=== PATIENT | female | born 1980 | race Caucasian/White ===

== ENCOUNTER → 2021-11-01 07:44 | Outpatient (CLI) | payer BC, SELFPAY ==
--- NOTE | 2021-11-01 07:46 | DI.US.S_ITS ---
PROCEDURE: US PELVIC COMPLETE INDICATIONS: RLQ PAIN TECHNIQUE: Real-time scanning was performed of the pelvic organs, with image documentation. Additional endovaginal scanning was necessary due to incomplete visualization of the adnexal and endometrial structures by transabdominal scanning. COMPARISON: [facility], US, US ABDOMEN COMPLETE, 11/01/2021, 7:49. FINDINGS: Uterus: Uterus is anteverted and normal in size at 7.8 x 4.4 x 6.9 cm. The myometrium is heterogeneous and demonstrates a 1.9 cm intramural fibroid on the left posteriorly. The endometrium measures 10 mm combined thickness. The endometrial stripe demonstrates a heterogeneous appearance, yet without focal masses. No abnormal vascularity can be seen along the endometrial stripe. Ovaries: The right ovary measures 4.8 x 2 x 3.4 cm. The right ovary demonstrates 3 simple appearing cystic follicles, with the largest measuring up to 1.8 cm. The left ovary measures 10.6 x 8 x 10.1 cm. There is a nonvascular 4.7 cm complex cyst seen. There is also a 7.4 x 6.9 x 8.5 cm nonvascular complex, heterogeneous mass with an echogenic shadowing component. Other: No pathologic free abdominal or pelvic fluid. No appendix (either normal or abnormal) is identified on this study. IMPRESSION: High suspicion for left ovarian dermoid, with the left ovary measuring 10.6 cm, with a heterogeneous mass with hyperechoic shadowing within it measuring up to 8.5 cm. Gynecology referral is recommended. If clinically appropriate, a follow-up pelvic CT (with IV and oral contrast) or dedicated gynecological protocol MRI (without and with contrast) could be considered for further evaluation (assuming that there is no contraindication). We strive to produce accurate, complete, and clear reports of imaging services. To assist us in improving patient care, this report was composed using standard report templates and voice recognition software. Therefore, it may contain abnormal punctuation, insertions and/or omissions. Occasional wrong-word or sound-alike substitutions may occur. Though we review the report and make efforts to correct it, we do recommend that the report be read carefully in proper context to recognize any text inaccuracies. Dictated by: Jame Doyle M.D. on 11/01/2021 at 8:53 Approved by: Jame Doyle M.D. on 11/01/2021 at 8:58
--- NOTE | 2021-11-01 07:46 | DI.US.S_ITS ---
PROCEDURE: US ABDOMEN COMPLETE INDICATIONS: RLQ PAIN TECHNIQUE: Real-time scanning was performed of the abdominal and retroperitoneal organs, with image documentation. COMPARISON: None. FINDINGS: Liver: Normal hepatic parenchymal echogenicity, echotexture, and contour. No focal hepatic mass identified. Gallbladder: Normally distended without wall thickening, pericholecystic fluid, sludge, or gallstone. Biliary ducts: Normal caliber. Pancreas: Visualized portions of the pancreas are sonographically normal. Spleen: The spleen is normal in size. There is suggestion of a possible 1.5 centimeter slightly hyperechoic and hypervascular nodule in the central spleen near the hilum, although this is not entirely definitive. There appears to be a hypoechoic halo surrounding the nodule. Kidneys: Normal size and appearance. No shadowing calculus or hydronephrosis. Aorta: Visualized aorta is normal in caliber at less than 3 cm. Iliacs: Proximal common iliac arteries are normal in caliber at less than 2.5 cm. IVC: Intrahepatic inferior vena cava is patent. Miscellaneous: No free abdominal fluid. IMPRESSION: Possible splenic mass measuring 1.[address] abdomen and pelvis with IV contrast for further characterization. Otherwise normal study. Dictated by: Andrew Doshi M.D. on 11/01/2021 at 10:04 Approved by: Andrew Doshi M.D. on 11/01/2021 at 10:13
== END ==
PROVIDERS: PCP Internal Medicine; Referring Provider Internal Medicine; Visit Provider Internal Medicine
DX: R10.31 Right lower quadrant pain (principal); D25.1 Intramural leiomyoma of uterus; N83.292 Other ovarian cyst, left side
CPT/HCPCS: 76700; 76830; 76856

== ENCOUNTER → 2021-11-15 10:56 | Outpatient (CLI) | payer BC, SELFPAY ==
--- NOTE | 2021-11-15 | DI.CT.S_ITS ---
PROCEDURE: CT ABDOMEN PELVIS W CON INDICATIONS: Right lower quadrant pain TECHNIQUE: After the administration of intravenous contrast, 5 mm thick images acquired from the diaphragm to the symphysis pubis after a 10-minute delay. 2 mm thick coronal and sagittal reformats were then performed of the kidneys and ureters. For radiation dose reduction, the following was used: automated exposure control, adjustment of mA and/or kV according to patient size. COMPARISON: [facility], , US ABDOMEN COMPLETE, 11/01/2021, 7:49. [facility], US, US PELVIC COMPLETE, 11/01/2021, 8:12. FINDINGS: Image quality: Excellent. Lung bases: Lung bases are clear. Heart size is normal. A small hiatal hernia is incidentally noted. Urinary system: Both kidneys are normal in size and enhancement. Contrast-filled renal calyces are normal in morphology. Contrast filled portions of both ureters are normal in caliber. Bladder wall thickness is normal. Solid organs: Liver is normal in size and enhancement. Gallbladder wall is not thickened. Biliary system is non dilated. Pancreas enhances normally. In this patient with this given history, scrutiny is given to the spleen at the site of the apparent prior ultrasound abnormality. No CT correlate can be seen by the potential ultrasound abnormality. The spleen demonstrates normal size and demonstrates no focal lesions. No adrenal nodules. Peritoneum and bowel: Bowel loops demonstrate normal wall thickness and caliber. No free fluid or air. Nodes and vessels: No retroperitoneal or mesenteric adenopathy by size criteria. Aorta and inferior vena cava are normal in size. Abdominal wall: No ventral hernias. Pelvis: There is a complex mass of the left ovary that contains fat and mural nodules that measures 7.4 x 6.9 by 6.5 cm. The uterus is unremarkable. No pathologic free pelvic fluid. No inguinal hernias or adenopathy. Bones: No suspicious bony lesions. No vertebral body compression fractures. Focal L5-S1 degenerative change is seen. There is lower thoracic spine degenerative change also seen. IMPRESSION: Left ovarian dermoid until proven otherwise. Gynecology consultation is recommended. No splenic abnormality is seen by CT. Incidental note is made of: Small hiatal hernia Lower thoracic spine degenerative change Focal L5-S1 degenerative change Dictated by: Jame Doyle M.D. on 11/15/2021 at 13:12 Approved by: Jame Doyle M.D. on 11/15/2021 at 13:16
== END ==
PROVIDERS: PCP Internal Medicine; Referring Provider Internal Medicine; Visit Provider Internal Medicine
DX: R10.31 Right lower quadrant pain (principal); R16.1 Splenomegaly, not elsewhere classified; D27.1 Benign neoplasm of left ovary; K44.9 Diaphragmatic hernia without obstruction or gangrene; M47.814 Spondylosis without myelopathy or radiculopathy, thoracic region; M47.817 Spondylosis without myelopathy or radiculopathy, lumbosacral region
CPT/HCPCS: 74177; Q9967

== ENCOUNTER → 2021-11-18 14:23 | Outpatient (CLI) | payer BC, SELFPAY ==
[2021-11-18 15:35] LABS: Cancer Antigen 125 43.2 U/mL (0-35)
[2021-11-20 11:41] LABS: Human Epididymis Prot 4 41.3 pmol/L (0.0-63.6)
== END ==
PROVIDERS: PCP Internal Medicine; Referring Provider Obstetrics & Gynecology; Visit Provider Obstetrics & Gynecology
DX: R19.09 Other intra-abdominal and pelvic swelling, mass and lump (principal); N83.8 Other noninflammatory disorders of ovary, fallopian tube and broad ligament
CPT/HCPCS: 36415; 86304; 86305

== ENCOUNTER → 2021-11-21 15:37 | Outpatient (CLI) | payer BC, SELFPAY ==
--- NOTE | 2021-11-21 15:38 | DI.MG.S_ITS ---
BILATERAL DIGITAL SCREENING MAMMOGRAM 3D/2D WITH CAD: 11/21/2021 CLINICAL: Baseline exam. Routine screening. No prior exams were available for comparison. There are scattered fibroglandular elements in both breasts. Current study was also evaluated with a Computer Aided Detection (CAD) system. No significant masses, calcifications, or other findings are seen in either breast. IMPRESSION: NEGATIVE There is no mammographic evidence of malignancy. A 1 year screening mammogram is recommended. This exam was interpreted at Station ID: [id number]. NOTE: For mammograms, a report in lay terms will be sent to the patient. Approximately 15% of breast malignancies will not be visualized mammographically. In the management of a palpable breast mass, a negative mammogram must not discourage biopsy of a clinically suspicious lesion. Electronically Signed By: Mike hyatt/shira:11/22/2021 08:13:44 letter sent: Normal Exam ACR BI-RADS Category 1: Negative 3341F
== END ==
PROVIDERS: PCP Internal Medicine; Referring Provider Internal Medicine; Visit Provider Internal Medicine
DX: Z12.31 Encounter for screening mammogram for malignant neoplasm of breast (principal)
CPT/HCPCS: 77063; 77067

== ENCOUNTER → 2021-11-23 11:41 | Outpatient (CLI) | payer BC, SELFPAY ==
[2021-11-23 13:30] LABS: COVID19 -Nasal RAPID Negative (Negative)
== END ==
PROVIDERS: PCP Internal Medicine; Visit Provider Obstetrics & Gynecology
DX: Z01.812 Encounter for preprocedural laboratory examination (principal); Z20.822 Contact with and (suspected) exposure to COVID-19
CPT/HCPCS: 87635

== ENCOUNTER 2021-11-24 10:48 | Day surgery (SDC) | payer BC, SELFPAY ==
[2021-11-21 13:59] VITALS: BMI 35.9
[2021-11-24] VITALS (11 sets, daily range): BP systolic 95–113; BP diastolic 58–72; PULSE 45–84; RESP 11–17; TEMP 36.2–36.4; O2SAT 98–100; BMI 35.9
--- NOTE | 2021-11-24 | PATH_ITS ---
Note [facility] Accession Number: [id number] TESTS RESULT FLAG UNITS REF RANGE LAB Clinician Provided Cytology Information No. of containers..01 Other (Miscellaneous) Source: PELVIC WASHINGS DIAGNOSIS: PELVIC WASHINGS NEGATIVE FOR MALIGNANT CELLS. REACTIVE MESOTHELIAL CELLS AND MACROPHAGES ARE PRESENT. THIS INTERPRETATION INCLUDES EVALUATION OF A CELL BLOCK. Pathologist ICD10: D27.1 Signed out by: Dhara Yao MD, Pathologist NPI- [id number] Performed by: Sam Degroot, [employer] Member ([facility]) Gross description: 20 CC, PINK, CLOUDY /LCS 11/25/2021 1811 Local FLAG LEGEND: L-Low Normal,H-High Normal,LL-Alert Low,HH-Alert High <-Panic Low,>-Panic High,A-Abnormal,AA-Critical Abnormal Performed at: 01 =Z [facility] [address], [place] [address] Nickolas Nelson MD, Performed at: 01 [facility] [address], [place], [place] [id number] MD Nickolas Nelson MD Phone: [phone]
[2021-11-24] MEDS: LACTATED RINGERS 1,000 ML 100 ML IV ×3 (11:23→14:16)
--- NOTE | 2021-11-24 12:24 | P.HP_ITS ---
History of Present Illness History of Present Illness Date Patient Seen: 11/24/21 Time Patient Seen: 12:24 Chief complaint: LAP L SALPINGO-OOPHORECTOMY W/POSS SALPINGECTOMY Narrative: Patient is a 41-year-old 0 with a 10 cm left ovarian dermoid. She presents for a laparoscopic left salpingo-oophorectomy. Patient History Family & Social History Tobacco & Substance use: Smoking Status Never smoker alcohol intake frequency a few times a month Substance Use Type does not use Meds Home Medications and Allergies Home Medications Medication Instructions Recorded Confirmed Type ibuprofen 200 mg tablet 400 mg PO Q8H 11/21/21 11/24/21 History Allergies Allergy/AdvReac Type Severity Reaction Status Date / Time amoxicillin Allergy Intermediate Hives Verified 11/21/21 10:59 Exam Vital Signs (past 8 hours): - 11/24/21 11:10 Temperature 97.5 F L Pulse Rate 45 L Respiratory Rate 16 Blood Pressure 105/72 Pulse Oximetry 100 Oxygen Delivery Method Room Air Narrative Exam Narrative: HEENT: No thyromegaly, no anterior cervical or supraclavicular lymphadenopathy. Lungs:Clear to auscultation bilaterally, no wheezes. Cardiovascular: Regular rate and rhythm, no murmurs, rubs, or gallops. Abdomen: No scars. No hepatosplenomegaly. No masses palpable. External genitalia: Normal Vagina: Normal Cervix: Normal Bimanual exam: 6 Week size uterus. Mobile. Left adnexal fullness and tende rness. Extremities: No edema Assessment & Plan Assessment & Plan narrative: Assessment: 41-year-old 0 with a 10 cm left ovarian dermoid Plan: Laparoscopic left salpingo-oophorectomy The risks, benefits, and alternatives to the procedure were explained to the patient. The risks including bleeding, infection, injury to the bowel, bladder, or ureters. She understands these risks and agrees to proceed. A full par Q was held and consent form was signed. COVID-19 COVID-19 status: Negative Result date/Date tested (Pos, Neg/Pending): 11/23/21 Time Spent With Patient Time with patient: less than 30 minutes Critical Care time: I spent a total of [] minutes of critical care time on this patient's care today; this time is exclusive of procedural time.
--- NOTE | 2021-11-24 12:26 | PM.PREOP ---
Pre-operative Note COVID-19 COVID-19 status: Negative Result date/Date tested (Pos, Neg/Pending): 11/23/21 Criteria for continued procedure: Delay expected to result in less-positive ultimate med/surg outcome and Non-surgical alternatives not available or appropriate per current SOC Interval Note History & Physical reviewed/Exam performed by Physician: Yes Changes to H&P: No H&P completed within 30 days and has changed as indicated here:: 11/24/21
--- NOTE | 2021-11-24 12:59 | SUR.OPER ---
Lithotomy on padded OR bed, head on pillow, arms secured on padded arm boards at <90 degrees abduction. Legs secured in padded yellow fins stirrups.
--- NOTE | 2021-11-24 13:00 | SUR.OPER ---
both arms tucked
[2021-11-24] MEDS: BUPIVACAINE 0.5% (PF) VIAL 30 ML INJ (13:04)
[2021-11-24] MEDS: EPINEPHrine 1 MG/ML 0.15 MG IM (13:05)
--- NOTE | 2021-11-24 13:58 | P.OP_ITS ---
Operative Date/Time/Diagnoses Date of procedure: 11/24/21 Time of procedure: 13:58 Pre-op diagnosis: Left ovarian dermoid Post-op diagnosis: same Procedure & Clinicians Procedure: Procedures Operation Date: 11/24/21 11:45 Actual Procedure Side Surgeon p Laparoscopic Left Salpingo-oophorectomy Left Gerri Dean MD Indications: 10 cm left ovarian dermoid Surgeon: Gerri Dean Orthopedic Podiatrist: Joi Gipson Anesthesia Type: General and Local Operative Notes Findings: 6 week size uterus, stuck to posterior cul de sac 10 cm Left ovarian dermoid Normal liver and gallbladder Normal left tube Could not visualize the right tube and ovary Could not visualize the appendix Endometriosis of the anterior lower uterus Closure Type: primary Specimen(s): left tube & ovary Estimated blood loss (mL): 10 Blood products transfused: none Procedure in detail: After informed consent was obtained, the patient was taken to the operating room where she was placed in the dorsal supine position. After adequate general endotracheal anesthesia was achieved, she was placed in the dorsal lithotomy position, and prepped and draped in the usual sterile fashion. A time-out was performed. A bivalve speculum was placed into the vagina and the anterior lip of the cervix was grasped with a single-tooth tenaculum. The cervical os was sequentially dilated until the Zumi could pass in through the cervix. The Zumi was unable to be placed up high in the uterus. It was left in the lower uterine segment. The single-tooth tenaculum was removed from the anterior lip of the cervix. The bivalve speculum was removed from the vagina. Attention was turned to the abdomen where 6 cc of 0.5% Marcaine with epinephrine were injected in the umbilical fold. A 5 mm incision was made. The Veress needle was placed into the peritoneal cavity, and its placement confirmed by aspiration and drop test. The abdominal cavity was insufflated with 3.3 L of CO2. The Veress needle was removed, and a 5 mm trocar was placed without difficulty. Two other incisions were made 4 cm lateral to the midline at the level of the umbilicus after 6 cc of 0.5% Marcaine with epinephrine were injected. Two 5 mm trocars were placed under direct visualization. Initial inspection of the abdomen and pelvis revealed the findings noted above. The uterus was socked into the posterior cul-de-sac. The left tube was grasped with an atraumatic grasper. Using the PlasmaKinetic with settings at 40 w, the infundibulopelvic ligament on the left side was cauterized and cut. This continued down the mesosalpinx all the way to the cornua of the uterus. The tube was amputated at the cornua of the uterus. 6 cc of 0.5% Marcaine with epinephrine were injected above the pubic symphysis. A 12 mm incision was made. A 12 mm trocar was placed under direct visualization. The large endobag was placed into pelvis. The left tube and ovary were placed into the endobag. The bag was closed. The trocar was removed and the edges of the bag were brought up through the skin. Using an 18 gauge spinal needle and a 30 cc syringe, the left ovarian cyst was decompressed and contained fatty fluid. The ovary was then morcellated in approximately 3 pieces. The remainder of the bag with the tube were removed through the incision. The fascia on the suprapubic incision was closed with 0 Vicryl. The abdomen was re-insufflated. The pelvis was copiously irrigated with warm normal saline. Hemostasis was achieved on the left side. The posterior cul-de-sac was not able to be visualized. The right tube and ovary and appendix were not able to be visualized. There was a large area of endometriosis on the anterior uterus. The instruments were removed from the abdomen. The CO2 was allowed to escape. The suprapubic incision was closed with 2 simple interrupted sutures with 3-0 Vicryl in the subcutaneous layer. All of the incisions were closed with 4-0 Monocryl in a subcuticular fashion. Steri-Strips and Allevyn dressings were placed. The Zumi uterine manipulator was removed from the lower uterine segment. Sponge, lap, and instrument counts were correct x2. The patient tolerated the procedure well, and was taken to PACU in stable condition. Complications: none Post-operative Condition: stable Disposition: PACU Plan for aftercare: Home after recovery
[2021-11-24] MEDS: ONDANSETRON 4 MG/2 ML INJ IV (14:20)
[2021-11-24] MEDS: OXYCODONE/ACETAMINOPHEN 5/325 TABLET 1 TAB PO ×2 (14:21→15:20)
[2021-11-24] MEDS: LORazepam 2 MG/ML INJ 0.25 MG IV (16:03)
== END 2021-11-24 16:45 | disposition home or self-care (01) ==
PROVIDERS: PCP Internal Medicine; Referring Provider Obstetrics & Gynecology; Visit Provider Obstetrics & Gynecology
PROC: (CPT 58661; principal; 2021-11-24 11:45)
DX: D27.1 Benign neoplasm of left ovary (principal)
CPT/HCPCS: 58661; 81025; J0171; J1100; J1885; J2060; J2250; J2405; J2704; J3010

== ENCOUNTER → 2023-04-04 12:18 | Outpatient (CLI) | payer BC, SELFPAY ==
--- NOTE | 2023-04-04 | DI.US.S_ITS ---
PROCEDURE: US PERIPH VENOUS LOW EXTREM RT INDICATIONS: CRAMPING TECHNIQUE: Real-time imaging, as well as color and pulse Doppler interrogation, were performed of the lower extremity deep veins from the inguinal ligament to the popliteal fossa. COMPARISON: None. FINDINGS: The common femoral, femoral and popliteal veins are normally compressible, and free of intraluminal thrombus. Color and pulse Doppler demonstrate normal phasic intraluminal flow. There is normal augmentation response to distal compression maneuver. IMPRESSION: Negative for deep venous thrombosis. Dictated by: Jame Doyle M.D. on 04/04/2023 at 13:30 Approved by: Jame Doyle M.D. on 04/04/2023 at 13:31
== END ==
PROVIDERS: PCP Internal Medicine; Referring Provider Internal Medicine; Visit Provider Internal Medicine
DX: M79.661 Pain in right lower leg (principal)
CPT/HCPCS: 93971

== ENCOUNTER → 2024-02-05 12:55 | Outpatient (ROUT) | payer BC, SELFPAY ==
[2024-02-05 16:22] LABS: Influenza A - CEPHEID Flu A NEGATIVE (NEGATIVE); Influenza B - CEPHEID Flu B NEGATIVE (NEGATIVE); Respiratory Syncytial Virus Negative (Negative)
[2024-02-05 16:23] LABS: COVID-19 CEPHEID 4-PLEX PCR Negative (Negative)
== END ==
PROVIDERS: PCP Internal Medicine; Visit Provider Internal Medicine
DX: R05.9 Cough, unspecified (principal)
CPT/HCPCS: 0241U

== ENCOUNTER → 2024-05-24 12:51 | Outpatient (CLI) | payer BC, SELFPAY ==
--- NOTE | 2024-05-24 12:52 | DI.MG.S_ITS ---
BILATERAL DIGITAL SCREENING MAMMOGRAM 3D/2D WITH CAD: 05/24/2024 CLINICAL: Routine screening. Family history of breast cancer. Comparison is made to exam dated: 11/21/2021 mammogram - [facility]. There are scattered areas of fibroglandular density in both breasts (category b / 25%-50% glandular tissue). Current study was also evaluated with a Computer Aided Detection (CAD) system. No significant masses, calcifications, or other findings are seen in either breast. There has been no significant interval change. IMPRESSION: NEGATIVE There is no mammographic evidence of malignancy. A 1 year screening mammogram is recommended. Based on the Tyrer Cuzick model (a risk assessment model) the patient's lifetime risk is 16.3% and her 10 year risk is 2.7%. According to the ACR, ACS, and NCCN guidelines, an annual breast MRI exam along with mammogram is recommended if the patient's lifetime risk is 20% or greater. This exam was interpreted at Station ID: [id number]. NOTE: For mammograms, a report in lay terms will be sent to the patient. Approximately 15% of breast malignancies will not be visualized mammographically. In the management of a palpable breast mass, a negative mammogram must not discourage biopsy of a clinically suspicious lesion. Electronically Signed By: Brie Patton M.D., Ph.D. francisco/shira:05/27/2024 16:52:18 letter sent: Normal Exam ACR BI-RADS Category 1: Negative 3341F
== END ==
PROVIDERS: PCP Internal Medicine; Referring Provider Internal Medicine; Visit Provider Internal Medicine
DX: Z12.31 Encounter for screening mammogram for malignant neoplasm of breast (principal); Z80.3 Family history of malignant neoplasm of breast
CPT/HCPCS: 77063; 77067